=== PATIENT | female | born 1975 | race African-American/Black ===

== ENCOUNTER 2020-04-23 10:35 | Emergency (ER) | payer BC ==
[~2020-04-23] VITALS: Ht 170.2 cm; Wt 99.8 kg
[~2020-04-23 10:35] MED LIST: BACTRIM DS TAB1 EACH PO; NOHOMEMEDICATIONS
[2020-04-23 11:20] LABS: URINE BILIRUBIN NEGATIVE (Negative); URINE BLOOD 1+ (Negative); URINE CLARITY HAZY; URINE COLOR YELLOW; URINE GLUCOSE-RANDOM* NEGATIVE (Negative); URINE KETONES NEGATIVE (Negative); URINE LEUKOCYTES-REFLEX 1+ (Negative); URINE NITRITE-REFLEX POSITIVE (Negative); URINE PROTEIN (DIPSTICK) NEGATIVE (Negative); URINE SPECIFIC GRAVITY 1.025 (1.005-1.035); URINE UROBILINOGEN 0.2 E.U./dl (0.2-1.0)
[2020-04-23 11:21] LABS: BASOPHILS 0.7 % (0.0-2.0); EOSINOPHILS 8.4 % (0.0-3.0); HEMATOCRIT 40.8 % (37.0-47.0); HEMOGLOBIN 14.5 gm/dL (12.0-15.0); LYMPHOCYTES 33.5 % (24.0-44.0); MCH 28.8 pg (26.0-34.0); MCHC 35.5 g/dL (28.0-37.0); MONOCYTES 7.3 % (1.0-8.0); PLATELET COUNT 284 thou/uL (150-400); POLYS 50.1 % (36.0-66.0); RBC 5.04 mil/uL (4.20-5.00); RDW 14.8 % (10.5-14.5); WBC 7.9 thou/uL (4.0-11.0)
[2020-04-23 11:23] LABS: CALCIUM 8.4 mg/dL (8.5-10.1); CREATININE 0.9 mg/dL (0.6-1.0); POTASSIUM 3.8 mmol/L (3.5-5.1)
[2020-04-23 11:29] LABS: ALBUMIN 3.4 g/dL (3.4-5.0); TOTAL BILIRUBIN 0.4 mg/dL (0.2-1.0); TOTAL PROTEIN 7.5 g/dL (6.4-8.2)
[2020-04-23] MEDS ORDERED: PROAIR HFA8.5 GM INH (11:39)
[2020-04-23 11:40] LABS: CASTS None Seen /LPF (None Seen); SQUAMOUS >10 Many /LPF (0-3)
[2020-04-23 11:41] LABS: BACTERIA-REFLEX >30 Many /HPF (None Seen); CRYSTALS None Seen /LPF (None Seen); URINE RBC 0-2 Rare /HPF (0-2); URINE WBC-REFLEX 6-15 Few /HPF (0-5)
[2020-04-23] MEDS ORDERED: MACROBID 100 M100 M1 PO (13:12)
[2020-04-23] MEDS ORDERED: SENNA-DOCUSATE1 EAC1 PO (13:12)
[2020-04-23] MEDS ORDERED: ULTRAM 50MG TAB50 MG PO (13:13)
[2020-04-23] MEDS ORDERED: IBU800 MG PO (13:13)
[2020-04-23] MEDS ORDERED: ZOFRAN ODT4 MG PO (13:14)
[2020-04-23 13:53] VITALS: BP 116/76
== END 2020-04-23 14:00 | disposition home or self-care (01) ==
LOC: ER 10:35
PROVIDERS: Emergency Medicine
DX: N39.0 Urinary tract infection, site not specified (principal); R05 Cough; Z20.828 Contact with and (suspected) exposure to other viral communicable diseases; D25.9 Leiomyoma of uterus, unspecified; Z79.899 Other long term (current) drug therapy; Z88.1 Allergy status to other antibiotic agents; R19.7 Diarrhea, unspecified

== ENCOUNTER 2020-06-24 22:08 | Emergency (ER) | payer BC, OTHER ==
[~2020-06-24] VITALS: Ht 170.2 cm; Wt 102.1 kg
[~2020-06-24 22:08] MED LIST changes: +IBU800 MG PO; +MACROBID 100 M100 M1 PO; +PROAIR HFA8.5 GM INH; +SENNA-DOCUSATE1 EAC1 PO; +ULTRAM 50MG TAB50 MG PO; +ZOFRAN ODT4 MG PO
[2020-06-24 23:37] LABS: HEMOGLOBIN 12.8 gm/dL (12.0-15.0); MCH 27.9 pg (26.0-34.0); MCHC 33.6 g/dL (28.0-37.0); PLATELET COUNT 252 thou/uL (150-400); RBC 4.58 mil/uL (4.20-5.00); RDW 14.7 % (10.5-14.5); WBC 10.4 thou/uL (4.0-11.0)
[2020-06-24 23:47] LABS: ANION GAP 8 mmol/L (7-16); BUN 9 mg/dL (7-18); CALCIUM 8.2 mg/dL (8.5-10.1); CHLORIDE 103 mmol/L (98-107); CO2 27 mmol/L (21-32); CREATININE 0.9 mg/dL (0.6-1.0); GLUCOSE 90 mg/dL (74-106); POTASSIUM 3.5 mmol/L (3.5-5.1); SODIUM 138 mmol/L (136-145)
[2020-06-24 23:58] LABS: ALBUMIN 3.3 g/dL (3.4-5.0); DIRECT BILIRUBIN 0.1 mg/dL (<0.1-0.2); SGOT 19 U/L (15-37); SGPT 23 U/L (30-65); TOTAL BILIRUBIN 0.3 mg/dL (0.2-1.0); TOTAL PROTEIN 7.1 g/dL (6.4-8.2); TROPONIN-I <0.06 ng/mL (<0.06)
[2020-06-25 00:32] LABS: ABSOLUTE NEUTROPHILS 6.3 thou/uL (1.4-8.2); PLATELET ESTIMATE NORMAL
[2020-06-25] MEDS ORDERED: PROAIR HFA8.5 GM INH (01:45)
[2020-06-25] MEDS ORDERED: ALBUTEROL2.5 MG/3 M INH (01:45)
[2020-06-25 02:01] VITALS: BP 126/71
--- NOTE | 2020-06-25 07:55 | EKG ---
[facility] [place] [place] [address] ELECTROCARDIOGRAM REPORT Name: MELA KELLY Room #: [facility] [id number] Admission: 06/24/20 Attend Phys: Discharge: 06/25/20 Date of : 77 Report #: [id number] THIS REPORT FOR: cc: Hari Wright Steven F. DO Santiago, Patrick MD MERGED WITH [facility] ~ THIS REPORT FOR: //name// 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
== END 2020-06-25 02:02 | disposition home or self-care (01) ==
LOC: ER 22:08
PROVIDERS: Emergency Medicine
DX: J45.909 Unspecified asthma, uncomplicated (principal); Z88.8 Allergy status to other drugs, medicaments and biological substances; Z86.2 Personal history of diseases of the blood and blood-forming organs and certain disorders involving the immune mechanism